=== PATIENT | female | born 1995 | race Two or more races ===

== ENCOUNTER 2023-05-21 15:59 | Emergency (ER) | payer SELFPAY ==
[2023-05-21 16:31] VITALS: BP 129/70; PULSE 79; TEMP 97.8; BMI 29.6
[2023-05-21 16:32] VITALS: RESP 19
[2023-05-21] MEDS ORDERED: KETOROLAC TROMETHAMINE 30 MG/1 ML VIAL IM ONE (17:41)
[2023-05-21] MEDS ORDERED: LIDOCAINE 4% PATCH TP ONE ×3 (17:41→18:07)
[2023-05-21] MEDS ORDERED: ACETAMINOPHEN 500 MG TABLET (FP) PO ONE (17:41)
[2023-05-21] MEDS ORDERED: KETOROLAC TROMETHAMINE 30 MG/1 ML VIAL ONE (18:00)
[2023-05-21] MEDS ORDERED: ACETAMINOPHEN 500 MG TABLET (FP) ONE (18:01)
[2023-05-21] MEDS ORDERED: LIDOCAINE PATCH REMOVAL MC SCH (22:00)
== END 2023-05-21 19:34 | disposition home or self-care (01) ==
LOC: JERFT 15:59
PROC: 3E0233Z Introduction of Anti-inflammatory into Muscle, Percutaneous Approach (ICD-10-PCS; principal; 2023-05-21)
DX: M79.10 Myalgia, unspecified site (principal); M54.9 Dorsalgia, unspecified; M54.2 Cervicalgia; W10.9XXA Fall (on) (from) unspecified stairs and steps, initial encounter
CPT/HCPCS: 70450-TC; 72125-TC; 99284-25

== ENCOUNTER 2024-02-09 15:56 | Emergency (ER) | payer OTHER ==
[2024-02-09 16:07] VITALS: BP 125/70; PULSE 82; RESP 19; TEMP 98.4; BMI 28.9
[2024-02-09 17:07] LABS: EPI CELLS >36 /uL (0-25.1); HYALINE CASTS 11 /uL (0-3.1); PH,URINE 6.5 (5.0-8.0); URINE APPEARANCE CLEAR; URINE BACTERIA 3214 /uL (0-1359); URINE BILIRUBIN NEGATIVE (NEGATIVE); URINE COLOR YELLOW; URINE GLUCOSE (UA) NEGATIVE (NEGATIVE); URINE KETONE TRACE (NEGATIVE); URINE LEUK ESTERASE 1+ (NEGATIVE); URINE NITRITE NEGATIVE (NEGATIVE); URINE PROTEIN NEGATIVE (NEGATIVE); URINE WBC 46 /uL (0-25.8)
[2024-02-09 18:05] LABS: URINE RBC 24.3 /uL (0-23.9)
[2024-02-09 18:23] LABS: HIV INTERPRETATION NEGATIVE (NEGATIVE)
[2024-02-09] MEDS ORDERED: ACETAMINOPHEN 325 MG TABLET (FP) ONE (18:33)
[2024-02-09] MEDS ORDERED: CEPHALEXIN MONOHYDRATE 500 MG CAPSULE (UD) ONE (18:34)
[2024-02-09] MEDS: ACETAMINOPHEN 325 MG TABLET (FP) PO ONE (18:36)
[2024-02-09] MEDS: CEPHALEXIN MONOHYDRATE 500 MG CAPSULE (UD) PO ONE (18:37)
== END 2024-02-09 18:50 | disposition home or self-care (01) ==
LOC: JER 15:56
DX: O23.40 Unspecified infection of urinary tract in pregnancy, unspecified trimester (principal); Z3A.00 Weeks of gestation of pregnancy not specified
CPT/HCPCS: 36415; 76817-TC; 81003; 84702; 84703; 86803; 86850; 86900; 86901; 87086; 87389; 99284-25

== ENCOUNTER 2024-02-11 14:56 | Emergency (ER) | payer OTHER ==
[2024-02-11 15:03] VITALS: BP 122/63; PULSE 74; RESP 20; TEMP 99.1; BMI 28.9
[2024-02-11] MEDS: ACETAMINOPHEN 1000 MG/100 ML BAG IVPB ONE (15:24)
[2024-02-11] MEDS: SODIUM CHLORIDE 0.9% 500 ML INFUS.BAG IV ONE (15:24)
[2024-02-11 15:54] LABS: BASO % 0.3 % (0-2.0); EOS % 2.1 % (0-4.5); HEMATOCRIT 39.2 % (32.4-45.2); HEMOGLOBIN 13.2 GM/dL (10.7-15.3); LYMPH % 36.4 % (8-40); MCH 30.6 pg (25.7-33.7); MCHC 33.8 g/dl (32.0-36.0); MEAN CELL VOLUME 90.6 fl (80-96); MEAN PLT VOLUME 10.1 fl (7.5-11.1); MONO % 8.5 % (3.8-10.2); NEUT % 52.7 % (42.8-82.8); PLATELET COUNT 312 10^3/uL (134-434); RBC 4.33 M/mm3 (3.60-5.2); RDW 12.8 % (11.6-15.6)
[2024-02-11 15:57] LABS: CALCIUM 9.2 mg/dL (8.5-10.1)
[2024-02-11 15:59] LABS: BLOOD UREA NITROGEN 8.2 mg/dL (7-18)
[2024-02-11 16:02] LABS: CREATININE 0.7 mg/dL (0.55-1.3)
== END 2024-02-11 17:10 | disposition home or self-care (01) ==
LOC: JER 14:56
DX: O26.891 Other specified pregnancy related conditions, first trimester (principal); R10.2 Pelvic and perineal pain; Z3A.01 Less than 8 weeks gestation of pregnancy
CPT/HCPCS: 36415; 80048; 84702; 85025; 99283-25